=== PATIENT | male | born 1980 | race Two or more races ===

== ENCOUNTER 2017-07-14 19:38 | Emergency (ER) | payer OTHER ==
[~2017-07-14] VITALS: Ht 170.2 cm; Wt 90.7 kg
[2017-07-14 19:47] VITALS: BP 132/79
[2017-07-14] MEDS ORDERED: TETRACAINE HCL/PF 0.5% UD 2 ML BOTTLE OP ONE (20:00)
[2017-07-14] MEDS ORDERED: FLUORESCEIN SODIUM OPHTH 1 EA STRIP OP ONE (20:00)
[2017-07-14] MEDS ORDERED: FLUORESCEIN SODIUM OPHTH 1 EA STRIP ONE (20:04)
[2017-07-14] MEDS ORDERED: TETRACAINE HCL/PF 0.5% UD 2 ML BOTTLE ONE (20:04)
== END 2017-07-14 20:26 | disposition home or self-care (01) ==
LOC: ER 19:44
DX: H10.9 Unspecified conjunctivitis (principal)
CPT/HCPCS: 99283; A4606; Z7610

== ENCOUNTER 2020-02-17 12:26 | Emergency (ER) | payer OTHER ==
[~2020-02-17] VITALS: Ht 170.2 cm; Wt 88.9 kg
[2020-02-17 12:47] VITALS: BP 154/83
--- NOTE | 2020-02-17 13:35 | NUR ---
Patient discharged to home in stable condition. Written and verbal after care instructions given. Patient verbalizes understanding of instruction.
== END 2020-02-17 13:38 | disposition home or self-care (01) ==
LOC: ER 12:33
DX: H66.92 Otitis media, unspecified, left ear (principal)